=== PATIENT | male | born 1980 | race Caucasian/White ===

== ENCOUNTER → 2016-03-07 | Outpatient (CLI) | payer OTHER ==
--- NOTE | 2016-03-07 17:28 | Diagnostic Imaging Report ---
Exam: KUB. Indication: Left-sided abdominal pain. Findings: There is a small amount of fecal material in the colon and rectum. No dilated bowel loops seen. No urinary tract stones are identified. Small calcifications in the right side of the pelvis are favored to be phleboliths. Impression: No definite abnormality. Dictated by: Dictated on workstation # [id number]
== END ==
LOC: RAD 13:35
PROVIDERS: ATTEND Family Medicine
DX: R10.12 Left upper quadrant pain (principal); R10.32 Left lower quadrant pain
CPT/HCPCS: 74000